=== PATIENT | male | born 1940 | race Two or more races ===

== ENCOUNTER → 2016-07-05 | Outpatient (CLI) | payer MEDICARE ==
--- NOTE | 2016-07-05 13:33 | CARD ---
APPROVED REPORT EXAM: Two-dimensional and M-mode echocardiogram with Doppler and color Doppler. Other Information Quality : GoodHR: 92bpm Rhythm : NSR INDICATION Congestive Heart Failure Heart failure (unspecified), COPD RISK FACTORS Hypertension Obesity 2D DIMENSIONS RVDd3.4 (2.9-3.5cm)Left Atrium(2D)4.4 (1.6-4.0cm) IVSd1.2 (0.7-1.1cm)Aortic Root(2D)2.8 (2.0-3.7cm) LVDd5.3 (3.9-5.9cm)LVOT Diameter2.5 (1.8-2.4cm) PWd1.2 (0.7-1.1cm)LA Eeqgtf51 (18-58mL) LVDs3.7 (2.5-4.0cm)FS (%) 31.0 % SV78.9 mlLVEF(%)58.3 (>50%) Aortic Valve AoV Peak Alberto.167.9cm/sAoV VTI35.0cm AO Peak GR.11.3mmHgLVOT Peak Alberto.114.2cm/s LVOT VTI 24.34cmAO Mean GR.7mmHg HELADIO (VMAX)2.65md6RPP (VTI)3.31cm2 Mitral Valve MV E Ugyprgll53.1cm/sMV DECEL SRYI340gk MV A Pkjileve515.0cm/sMV E Mean Gr.2mmHg MV QKD60jqI/A Ratio0.8 MV A Mlytlepy504mcKAU (PHT)4.09cm2 TDI E/Lateral E'12.4E/Medial E'13.1 Pulmonary Valve PV Peak Myuqkcmr418.6cm/sPV Peak Grad.5mmHg Tricuspid Valve TR P. Tbgookaz410sd/sRAP UKJWXEBU5edRi TR Peak Gr.17ckOkWBSI03mwKr Pulmonary Vein S1 Qiaugtlk80.3cm/sD2 Qlzxowhs10.8cm/s PVa texyjqjk214kjnd LEFT VENTRICLE The left ventricle is normal size. There is mild concentric left ventricular hypertrophy. The left ve ntricular systolic function is normal. The Ejection Fraction is 60-65%. There is normal LV segmental wall motion. Transmitral Doppler flow pattern is Grade I-abnormal relaxation pattern. RIGHT VENTRICLE The right ventricle is normal size. There is normal right ventricular wall thickness. The right ventr icular systolic function is normal. ATRIA The left atrium is mildly dilated. The right atrium size is normal. The interatrial septum is intact with no evidence for an atrial septal defect or patent foramen ovale as noted on 2-D or Doppler imagi ng. AORTIC VALVE The aortic valve is mildly sclerotic. The aortic valve is trileaflet. Doppler and Color Flow revealed no significant aortic regurgitation. There is no significant aortic valvular stenosis. MITRAL VALVE The mitral valve leaflets are thickened. There is no evidence of mitral valve prolapse. There is no m itral valve stenosis. Doppler and Color Flow revealed no mitral valve regurgitation noted. TRICUSPID VALVE Doppler and Color Flow revealed trace tricuspid regurgitation. The pulmonary artery systolic pressure is estimated at 40 mmHg. There is mild pulmonary hypertension. PULMONIC VALVE Doppler and Color Flow revealed trace pulmonic valvular regurgitation. There is no pulmonic valvular stenosis. GREAT VESSELS The aortic root is normal in size. The ascending aorta is normal in size. The pulmonary artery is nor mal. The IVC is normal in size and collapses >50% with inspiration. PERICARDIAL EFFUSION There is no evidence of significant pericardial effusion. Critical Notification Critical Value: No <Conclusion> The left ventricular systolic function is normal. The Ejection Fraction is 60-65%. There is normal LV segmental wall motion. Transmitral Doppler flow pattern is Grade I-abnormal relaxation pattern. Doppler and Color Flow revealed trace tricuspid regurgitation. The pulmonary artery systolic pressure is estimated at 40 mmHg. There is no evidence of significant pericardial effusion.
== END | disposition home or self-care (01) ==
LOC: ECHO 08:47
PROVIDERS: ATTEND Internal Medicine Cardiovascular Disease
DX: I50.9 Heart failure, unspecified (principal); I07.1 Rheumatic tricuspid insufficiency; J44.9 Chronic obstructive pulmonary disease, unspecified
CPT/HCPCS: 93306

== ENCOUNTER → 2017-07-02 | Outpatient (CLI) | payer MEDICARE | END | disposition home or self-care (01) | LOC: ECHO 14:03 | DX: I11.0 Hypertensive heart disease with heart failure (principal); I50.9 Heart failure, unspecified; I31.3 Pericardial effusion (noninflammatory); I36.1 Nonrheumatic tricuspid (valve) insufficiency; E66.9 Obesity, unspecified | CPT/HCPCS: 93306 ==

== ENCOUNTER → 2017-07-04 | Outpatient (CLI) | payer MEDICARE | END | disposition home or self-care (01) | LOC: US 10:29 | DX: E66.01 Morbid (severe) obesity due to excess calories (principal); K76.0 Fatty (change of) liver, not elsewhere classified | CPT/HCPCS: 76705 ==

== ENCOUNTER → 2018-01-27 | Outpatient (CLI) | payer MEDICARE ==
--- NOTE | 2018-01-27 12:04 | CARD ---
MR#: [id number] Date of Study: 01/27/2018 Ordering Physician: LASHANDA SHEA, Referring Physician: LASHANDA SHEA, Tech: Allegra Estevez RDCS APPROVED REPORT EXAM: Two-dimensional and M-mode echocardiogram with Doppler and color Doppler. Other Information Quality : Good INDICATION Exertional Dyspnea 2D DIMENSIONS RVDd3.2 (2.9-3.5cm)Left Atrium(2D)4.2 (1.6-4.0cm) IVSd1.0 (0.7-1.1cm)Aortic Root(2D)2.9 (2.0-3.7cm) LVDd4.7 (3.9-5.9cm)LVOT Diameter2.2 (1.8-2.4cm) PWd1.0 (0.7-1.1cm)LVDs3.6 (2.5-4.0cm) FS (%) 23.3 %SV48.2 ml LVEF(%)60.0 (>50%) Aortic Valve AoV Peak Alberto.155.2cm/sAoV VTI31.8cm AO Peak GR.9.6mmHgLVOT Peak Alberto.121.5cm/s LVOT VTI 29.16cmAO Mean GR.5mmHg HELADIO (VMAX)3.70mn3KHP (VTI)3.51cm2 Mitral Valve MV E Zyqigfqg34.3cm/sMV DECEL UJJN386bq MV A Dfpdbddy989.4cm/sMV KLT40dp E/A Ratio0.6MVA (PHT)2.98cm2 TDI E/Lateral E'10.7E/Medial E'14.5 Tricuspid Valve TR P. Xndqlcpd410dy/sRAP CUDQDBHD95kaYk TR Peak Gr.83kmGcBIYS70ynQn Pulmonary Vein S1 Mdtamowp94.1cm/sD2 Yoomguhv48.0cm/s LEFT VENTRICLE The left ventricle is normal size. There is normal left ventricular wall thickness. The left ventricu lar systolic function is normal and the ejection fraction is within normal range. The Ejection Fracti on is 60-65%. There is normal LV segmental wall motion. Transmitral Doppler flow pattern is Grade I-a bnormal relaxation pattern. RIGHT VENTRICLE The right ventricle is mildly dilated. The right ventricular systolic function is normal. ATRIA The left atrium is mildly dilated. The right atrium is mildly dilated. The interatrial septum is inta ct with no evidence for an atrial septal defect or patent foramen ovale as noted on 2-D or Doppler im aging. AORTIC VALVE The aortic valve is calcified but opens well. Doppler and Color Flow revealed no significant aortic r egurgitation. There is no significant aortic valvular stenosis. MITRAL VALVE The mitral valve is calcified but opens well. There is no evidence of mitral valve prolapse. There is no mitral valve stenosis. Doppler and Color Flow revealed trace mitral valve regurgitation. TRICUSPID VALVE The tricuspid valve is normal in structure and function. Doppler and Color Flow revealed mild tricusp id regurgitation. The PA pressure was estimated at 54 mmHg. There is no tricuspid valve stenosis. PULMONIC VALVE The pulmonic valve is not well visualized. Doppler and Color Flow revealed mild pulmonic valvular reg urgitation. There is no pulmonic valvular stenosis. GREAT VESSELS The aortic root is normal in size. The ascending aorta is mildly dilated. The IVC is dilated and baldo apses <50% with inspiration. PERICARDIAL EFFUSION There is no evidence of significant pericardial effusion. Critical Notification Critical Value: No <Conclusion> The left ventricle is normal size. The left ventricular systolic function is normal and the ejection fraction is within normal range. The Ejection Fraction is 60-65%. There is no significant aortic valvular stenosis. Doppler and Color Flow revealed no significant aortic regurgitation. Doppler and Color Flow revealed trace mitral valve regurgitation. Doppler and Color Flow revealed mild tricuspid regurgitation. The PA pressure was estimated at 54 mmHg. The ascending aorta is mildly dilated. Signed by : Lashanda Shea MD Electronically Approved : 01/27/2018 12:03:43
== END | disposition home or self-care (01) ==
LOC: ECHO 10:48
PROVIDERS: ATTEND Internal Medicine Cardiovascular Disease
DX: I36.1 Nonrheumatic tricuspid (valve) insufficiency (principal); I11.0 Hypertensive heart disease with heart failure; I50.9 Heart failure, unspecified; J44.9 Chronic obstructive pulmonary disease, unspecified; E66.01 Morbid (severe) obesity due to excess calories
CPT/HCPCS: 93306

== ENCOUNTER → 2018-02-10 | Outpatient (CLI) | payer MEDICARE ==
--- NOTE | 2018-02-10 15:54 | RAD ---
Chest, 2 views, 02/10/2018: HISTORY: Shortness of breath Comparison is made to a study from 05/09/2016. The heart size is normal. There is calcific plaquing of the aorta. Bibasilar streaky opacities appear to have worsened slightly since the previous study. The appearance suggests a combination of atelectasis and scarring. The upper lung herring are clear. No pleural fluid is evident. Scattered degenerative changes are present in the spine. Incidental note is made of a lap band type device related to the proximal aspect of the stomach. IMPRESSION: Moderate bibasilar linear atelectasis and/or scarring. Electronically signed by: Boris Romero MD (02/10/2018 3:51 PM) [facility]
== END | disposition home or self-care (01) ==
LOC: LAB 14:13
PROVIDERS: ATTEND Internal Medicine Pulmonary Disease
DX: R06.00 Dyspnea, unspecified (principal)
CPT/HCPCS: 36415; 71046; 83880

== ENCOUNTER → 2018-03-26 | Outpatient (CLI) | payer MEDICARE ==
--- NOTE | 2018-03-26 16:45 | RAD ---
CT of the chest without contrast, 03/26/2018: HISTORY: Abnormal chest x-ray, short of breath Multidetector CT imaging was performed without contrast as requested. There is mild calcific plaquing of the thoracic aorta without evidence of aneurysm. Moderate scattered coronary artery calcifications are present. The heart is at the upper limits of normal in size. There are calcified mediastinal and right hilar lymph nodes compatible with old granulomatous disease. No mediastinal adenopathy is seen. A LAP-BAND type device is evident near the GE junction level. There are moderate streaky parenchymal opacities primarily in the lung bases. The appearance suggests atelectasis and/or scarring. No pulmonary mass is seen. There are prominent subpleural fat accumulations in the lower chest as well as abundant mediastinal fat. No pleural fluid is evident. There is mild bilateral renal scarring with mild streaky bilateral perinephric scarring or edema. Moderate multilevel degenerative changes are present in the spine. IMPRESSION: 1. Moderate bibasilar linear atelectasis and/or scarring. 2. Moderate coronary artery calcifications. PQRS Compliance Statement: One or more of the following individualized dose reduction techniques were utilized for this examination: 1. Automated exposure control 2. Adjustment of the mA and/or kV according to patient size 3. Use of iterative reconstruction technique Electronically signed by: Boris Romero MD (03/26/2018 4:42 PM) [facility]
== END | disposition home or self-care (01) ==
LOC: CT 13:51
PROVIDERS: ATTEND Internal Medicine Pulmonary Disease
DX: I25.10 Atherosclerotic heart disease of native coronary artery without angina pectoris (principal)
CPT/HCPCS: 71250

== ENCOUNTER → 2018-04-24 | Outpatient (CLI) | payer MEDICARE ==
--- NOTE | 2018-04-30 16:08 | SLEEP ---
DATE OF STUDY: 04/24/2018 OBJECTIVE: The patient is a 77-year-old male with previous study showing obstructive sleep apnea. The patient was intolerant of CPAP in the past. He has excessive somnolence and observed apnea. Weight 280 pounds, height 5 feet 6 inches, body mass index 46, [place] sleep score 17. INTERPRETATION: Sleep architecture is characterized by a sleep efficiency of 83% across the 7.5 hours of recording time. Sleep onset latency is 0.5 minutes. Stage volumes are appropriate for age. Respiratory monitoring shows a total of 244 events for an overall apnea-hypopnea index of 39.5 events per hour of sleep. The minimum oxygen saturation is 62%. The patient is started on treatment. Respiratory events remain poorly controlled even on a setting of BiPAP, 30/25. On this setting, apnea-hypopnea index is 36.9 events per hour of sleep. The vast majority of the events are obstructive in nature. No significant periodic limb movements of sleep are observed, index is 21 events per hour, 3 events per hour associated with arousal. Tachycardia is observed during the study. IMPRESSION: Abnormal polysomnogram showing severe obstructive sleep apnea and hypopnea, only partially treated using a BiPAP setting of 30/25, oxygen at 2 liters per minute, Respironics medium DreamWear full face mask. RECOMMENDATIONS: This is a difficult case as the apnea is untreated despite maximum BiPAP pressures. One could consider starting the patient on the above settings. He could benefit from a stimulant therapy. Referral for surgical treatment of apnea is another possibility. Of course, the patient should avoid sedatives and alcohol, avoid the supine position, and pursue weight loss. Thank you for letting us help with the patient's care. SANTA CLEMENTS MD DR: CA/tish JOB#: [id number] / [id number] KATIUSKA Adams MD, GEORGE MD
== END | disposition home or self-care (01) ==
LOC: SLPLAB 18:41
PROVIDERS: ATTEND Internal Medicine Pulmonary Disease
DX: G47.33 Obstructive sleep apnea (adult) (pediatric) (principal)
CPT/HCPCS: 95810

== ENCOUNTER → 2019-05-04 | Outpatient (CLI) | payer MEDICARE ==
--- NOTE | 2019-05-04 16:57 | RAD ---
EXAM: Chest, 2 views. HISTORY: Congestive heart failure. COMPARISON: 04/22/2018 FINDINGS: 2 views of chest are obtained. There is mild suspected poor congestion. There may be superimposed bilateral infrahilar atelectasis. There is no consolidation, pleural effusion or pneumothorax. There is a stable prominent cardiac silhouette. IMPRESSION: Stable suspected trace congestion with superimposed infrahilar atelectasis. Electronically signed by: Kavitha Ramesh MD (05/04/2019 4:54 PM) [place] [id number]
== END | disposition home or self-care (01) ==
LOC: RAD 14:53
PROVIDERS: ATTEND Family Medicine
DX: I50.9 Heart failure, unspecified (principal)
CPT/HCPCS: 71046

== ENCOUNTER → 2020-09-01 | Outpatient (CLI) | payer MEDICARE ==
--- NOTE | 2020-09-01 13:19 | KCIC ---
XR LEFT CLAVICLE, XR SHOULDER_LEFT 2+ VIEWS History: Acute strain of left shoulder position recliner. Left shoulder pain. Comparison: Chest x-ray 05/04/2019 Technique: 2 views of the left clavicle 3 views the left shoulder. Findings: There is an acute transverse fracture of the medial left clavicle with approximately 9 mm inferior di splacement of the distal clavicle. There is ill-defined lobulated lucency at the fracture margins, no t appreciated on comparison exam. Acromioclavicular joint and glenohumeral joints are normally aligned. Mild degenerative changes of left shoulder. Impression: 1. Acute transverse fracture medial left clavicle. Irregular lucent margins of the fracture. Questio n underlying lytic clavicle lesion causing pathologic fracture. 2. Mild degenerative changes of the left shoulder. Electronically signed by: Henrry Jones MD (09/01/2020 1:16 PM) [facility]
== END ==
LOC: KCIC 12:25
PROVIDERS: ATTEND Family Medicine
DX: S42.012A Anterior displaced fracture of sternal end of left clavicle, initial encounter for closed fracture (principal); M19.012 Primary osteoarthritis, left shoulder; X58.XXXA Exposure to other specified factors, initial encounter; Y93.89 Activity, other specified; Y92.89 Other specified places as the place of occurrence of the external cause; Y99.8 Other external cause status
CPT/HCPCS: 73000; 73030

== ENCOUNTER → 2020-09-06 | Outpatient (CLI) | payer MEDICARE ==
--- NOTE | 2020-09-07 11:09 | KCIC ---
LEFT LOWER EXTREMITY DUPLEX ARTERY ULTRASOUND Indication: Reason: PVD; PRESSURE ULCER / Spl. Instructions: / History: Comparison: None. Procedure: Real-time grayscale, color flow Doppler, and Doppler spectral waveform analysis of the art erial system of the lower extremity is performed. Findings: Triphasic waveforms of the common femoral, profunda, and proximal superficial femoral arteries. There are biphasic waveforms in the remainder of the left lower extremity. There is no arterial occlusion. No focal elevated peak systolic velocity is identified. Atherosclerotic disease of the popliteal art libia and distal superficial femoral artery and calf arteries is noted. IMPRESSION: No hemodynamically significant stenosis. Electronically signed by: Hiram Frank MD (09/07/2020 11:06 AM) [id number]
== END ==
LOC: KCIC US 12:21
PROVIDERS: ATTEND Family Medicine
DX: L97.909 Non-pressure chronic ulcer of unspecified part of unspecified lower leg with unspecified severity (principal); M25.512 Pain in left shoulder; I70.203 Unspecified atherosclerosis of native arteries of extremities, bilateral legs
CPT/HCPCS: 93926